=== PATIENT | female | born 1995 | race Caucasian/White ===

== ENCOUNTER 2019-04-15 06:30 | Inpatient (IN) | payer OTHER, SELFPAY ==
[2019-04-15] VITALS (14 sets, daily range): BP systolic 104–144; BP diastolic 73–106; PULSE 112–140; RESP 13–24; TEMP 36.1–37.3; O2SAT 18–100; BMI 25.6
--- NOTE | ~2019-04-15 | CT_ITS ---
EXAMINATION: CT brain wo con DATE: 04/15/2019 23:57 INDICATION: Anterior right head injury post fall TECHNIQUE: Computed tomography (CT) of the head was performed without intravenous contrast. Sagittal and coronal reconstructions were performed. The mA was adjusted according to patient size. Iterative reconstruction technique was employed. The dose-length product was 605.33 mGy-cm. COMPARISON: None FINDINGS: Small anterior right frontal subcutaneous hematoma. No fracture. No acute intracranial hemorrhage, ac cahto infarction or abnormal extra axial fluid collection. Ventricles are normal and symmetric. No mass /mass effect. The orbits, paranasal sinuses and mastoid air cells are normal. IMPRESSION: 1. Normal brain. No fracture or acute intracranial process. Reviewed, dictated and finalized at location A. DRIER
--- NOTE | ~2019-04-15 | XR_ITS ---
EXAMINATION: XR chest 2V DATE: 04/15/2019 07:28 INDICATION: Chest pain. TECHNIQUE: Frontal and lateral views of the chest were obtained. COMPARISON: CT abdomen and pelvis 03/31/2016, chest 2 views 06/21/2011 FINDINGS: There is no pneumonia, pleural effusion, or pneumothorax. The heart size is normal. IMPRESSION: 1. No acute cardiopulmonary disease. Reviewed, dictated and finalized at location A. CELL TECHNICIAN
--- NOTE | 2019-04-15 07:03 | ECG_ITS ---
Measurements Intervals [place] Rate: 126 P: 57 CA: 152 QRS: 46 QRSD: 79 T: 51 QT: 273 QTc: 396 Interpretive Statements SINUS TACHYCARDIA ABNORMAL ECG Electronically Signed On 04-15-2019 8:11:57 [employer] by Carlos Blankenship D.O.
--- NOTE | 2019-04-15 07:14 | ED.ALCOHOL ---
HPI - Alcohol General Chief Complaint: Alcohol Stated Complaint: N/V/WITHDRAWL Time Seen by Provider: 04/15/19 06:55 Source: patient Mode of arrival: ambulatory Limitations: no limitations History of Present Illness HPI narrative: Patient is a 23-year-old female who presents to the emergency department with complaint of nausea, vomiting, and alcohol withdrawal. Patient has been drinking approximately half 1/5 of vodka daily for over a year. Patient states she tried Natasha a couple of days ago. Patient has not had any alcohol in 2 days. She developed nausea and vomiting last night and has been able to keep down any liquids. Patient developed a shaking tremor last night. Patient denies any prior treatment for alcoholism. She is currently complaining of epigastric abdominal pain as well as chest pain. MD complaint: alcohol withdrawal Last drink: days (ago) (2) Chronic alcohol use: Yes Previous visits for alcohol intoxication: No Recent trauma: No Associated symptoms: nausea, vomiting, tremors and abdominal pain Treatments prior to arrival: none Related Data Allergies Allergy/AdvReac Type Severity Reaction Status Date / Time No Known Allergies Allergy Unverified 03/31/16 03:28 Review of Systems Review of Systems: All systems reviewed & are unremarkable except as noted in HPI and below Cardiovascular: Cardiovascular: Reports chest pain Gastrointestinal: Gastrointestinal: Reports abdominal pain, Reports nausea and Reports vomiting Psychiatric: Psychiatric: Reports anxiety PMFSH Past Medical History Medical History (Updated 04/15/19 @ 11:42 by María Aguirre MD) No significant past medical history Surgical History Surgical History (Updated 04/15/19 @ 07:28 by María Aguirre MD) No significant past surgical history Family History Family History (Updated 11/07/13 @ 07:13 by DOCTOR UNKNOWN) Grandparent Hypertension Mother Hypertension Social History Social History (Updated 04/15/19 @ 07:18 by María Aguirre MD) Smoking status: Never smoker Alcohol intake: current Alcohol use details: Half of 1/5 of vodka daily Substance use type: other Other substance usage details: Natasha Gender identity (if verbalized by the patient): Female Exam Const: General: cooperative, alert and ill appearing acutely Nutritional Appearance: well nourished Orientation/consciousness: patient oriented x3 Limitations: no limitations Other: Actively vomiting during evaluation HENMT: Mouth: Yes lip normal and Yes moist mucous membranes Resp: Effort & Inspection: normal respiratory effort Auscultation: clear to auscultation bilaterally Cardio: Rate: tachycardic Rhythm: regular rhythm GI: GI Palp: Yes abdominal tenderness (Epigastric) and Yes Soft to palpation Auscultation: normal bowel sounds Skin: General skin exam: normal color Neuro: General: patient oriented x3 Cognition (Neuro): normal cognition Speech: normal speech Motor exam (neuro): Tremors during motor activity present Extrem: General: normal to inspection, full ROM and no clubbing, cyanosis or edema Psych: Appearance: well kempt Mental Status: mental status grossly normal Affect: Anxious affect present Attitude: cooperative Course Course Emergency Course: Patient presents tachycardic, hypertensive, and tremulous consistent with alcohol withdrawal. Patient ended up testing positive for amphetamines and cocaine on drug screen, thus complicating the picture as some of her symptoms could be due to stimulant intoxication. Patient feels better after Ativan, but still having tremor, so second dose of Ativan given. Patient aggressively hydrated. Will admit to hospital service for close monitoring and treatment of alcohol withdrawal and stimulant intoxication. No evidence of rhabdomyolysis at this time. Patient advised of test results, diagnosis, and admission plan. Vital Signs Vital signs: Vital Signs Temperature 97.
[2019-04-15] MEDS: LACTATED RINGERS 1,000 ML 999 ML IV CONT ×2 (07:32→09:07)
[2019-04-15] MEDS: LORAZEPAM INJ 2 MG/ML VIAL IV PUSH ×2 (07:34→09:07)
[2019-04-15] MEDS: ONDANSETRON INJ 4 MG/2 ML VIAL IV PUSH ×2 (07:34→11:12)
[2019-04-15] MEDS: PANTOPRAZOLE SODIUM IV 40 MG VIAL IV PUSH (07:34)
[2019-04-15 07:54] LABS: Basophils Absolute Auto 0.1 K/mm3 (0.0-0.1); Basophils Percent Auto 0.7 % (0.2-1.2); Hematocrit 45.7 % (37.0-47.0); Hemoglobin 14.5 g/dL (12.0-15.0); Immature Granulocyte Absolute 0.22 K/mm3 (0.00-0.031); Immature Granulocyte Percent A 1.5 % (0-0.5); Lymphocytes Absolute Auto 0.69 K/mm3 (0.9-3.2); Lymphocytes Percent Auto 4.7 % (18.3-44.2); Mean Corpuscular HGB Conc 31.7 g/dl (32-36); Mean Corpuscular Hemoglobin 32.6 pg (26-34); Mean Corpuscular Volume 102.7 fl (80-100); Monocytes Absolute Auto 0.7 K/mm3 (0.1-0.6); Monocytes Percent Auto 4.5 % (2.6-8.5); Neutrophils Percent Auto 88.6 % (45.5-73.1); Platelet Count Result 149 k/mm3 (150-375); Red Blood Count 4.45 M/mm3 (4.2-5.4); Red Cell Distribution Width 12.8 % (11.5-14.5); White Blood Count 14.6 K/mm3 (4.5-10.0)
[2019-04-15 07:59] LABS: Add Urine Microscopic? YES; Appearance Urine Clear (Clear); Bilirubin Urine Negative (Negative); Blood Urine 2+ (Negative); Color Urine Yellow (Yellow); Glucose Urine UA Negative (Negative); Ketones Urine 2+ mg/dL (Negative); Leukocyte Esterase Ur Negative LEU/UL (Negative); Mucus Urine Rare /lpf; Nitrate Urine Negative (Negative); Protein Urine 3+ mg/dL (Negative); Specific Grav Ur 1.027 (1.001-1.035); Squamous Epithelial Cell Urine Many /hpf (Few); Urobilinogen Urine Negative mg/dL (<2.0)
[2019-04-15 08:04] LABS: Partial Thromboplastin Time 23.8 SECONDS (22.3-36.8); Prothrombin Time 13.3 Seconds (11.1-14.7)
[2019-04-15 08:08] LABS: Alanine Aminotransferase 206 U/L (4-35); Alkaline Phosphatase 91 U/L (38-126); Aspartate Amino Transferase 291 U/L (14-36); Blood Urea Nitrogen 13 mg/dL (7-17); Calcium 10.2 mg/dL (8.4-10.2); Carbon Dioxide < 5 mmol/L (22-30); Chloride 103 mmol/L (98-107); Estimated CRCL calculation 64 ml/min; Estimated Glomerular Filt Rate > 60; Ethanol 19 mg/dL (<10); Glucose 93 mg/dL (65-105); Lipase 331 U/L (23-300); Magnesium 2.1 mg/dL (1.6-2.3); Potassium 4.7 mmol/L (3.4-5.0); Sodium 140 mmol/L (137-145)
[2019-04-15 08:13] LABS: Barbiturate Screen Urine Negative (Negative); Benzodiazepines Screen Urine Negative (Negative)
[2019-04-15 08:14] LABS: Cannabinoid Screen Urine Negative (Negative); Cocaine Screen Urine Positive (Negative); Methadone Screen Urine Negative (Negative); Opiate Screen Urine Negative (Negative); Phencyclidine Screen Urine Negative (Negative)
[2019-04-15 08:22] LABS: Troponin I < 0.012 ng/mL (0.000-0.034)
[2019-04-15 08:24] LABS: Amphetamine Screen Urine Positive (Negative)
[2019-04-15 08:51] LABS: Thyroid Stimulating Hormone Reflex 0.691 uIU/mL (0.465-4.68)
[2019-04-15 09:30] LABS: Creatine Kinase 211 U/L (30-135)
[2019-04-15] MEDS: LORAZEPAM INJ 2 MG/ML VIAL 1 MG IV PUSH ×3 (12:19→20:42)
[2019-04-15] MEDS: CHLORDIAZEPOXIDE 25 MG CAPSULE PO (12:19)
[2019-04-15] MEDS: LACTATED RINGERS 1,000 ML 150 ML IV CONT ×3 (12:20→20:42)
--- NOTE | 2019-04-15 13:24 | PM.IMHP ---
H&P: HPI History of Present Illness Chief complaint: Acute alcohol withdrawl/nausea/vomiting/diarrhea Narrative: Jaylene Pimentel is a 23 year old female who has been drinking a half to a 5th of a pt of vodka on a daily basis for the last year. The patient stated that she has not had a drink of alcohol since Monday. The patient stated she deals with OCD and some held depression and anxiety. She has been on medication for OCD but not from long time. She currently does not take any medication. Patient has a family history of alcoholism. The patient started vomiting last night and is unable to keep down any fluids today. Patient is also shaky and having hand tremors since last night. Today she is having some hallucinations about seeing people in her room that do not exist. Blood pressure is 121/73 and heart rate is 134. On IV fluids and given IV lorazepam. She is also started on Librium as well. Started on the [facility]. Date of service 04/15/2019.Patient also stated that she had taken Natasha a couple days ago. She does not use Natasha every day. Her white count was noted to be 14.6 and platelets 149. Chest x-ray was negative. Review of Systems Review of Systems: All systems reviewed & are unremarkable except as noted in HPI and below Constitutional: Constitutional: Reports as per HPI and Reports no additional constitutional complaints Eyes: Eyes: Reports as per HPI and Reports no additional eye complaints ENT: Reports system reviewed and no additional complaints, except as documented and Reports Normal hearing present Cardiovascular: Cardiovascular: Reports no additional cardiovascular complaints Respiratory: Respiratory: Reports no additional respiratory complaints and Reports no additional respiratory complaints Gastrointestinal: Gastrointestinal: Reports as per HPI and Reports no additional gastrointestinal complaints Musculoskeletal: Musculoskeletal: Reports no additional musculoskeletal complaints Integumentary/Breasts: Skin/Breast: Reports system reviewed and no additional complaints, except as docu and Reports as per HPI Neurologic: Reports system reviewed and no additional complaints, except as documented, Reports as per HPI and Reports Normal hearing present Psychiatric: Psychiatric: Reports no additional psychiatric complaints, Reports as per HPI, Reports anxiety, Reports depression, Reports visual hallucinations and Reports hallucinations Endocrine: Endocrine: Reports no additional endocrine complaints Hematologic/Lymphatic: Hematologic/Lymphatic: Reports no additional hematologic/lymphatic complaints Allergic/Immunologic: Allergic/Immunologic: Reports no additional allergic/immunologic complaints [facility] Past Medical History Medical History (Updated 04/15/19 @ 13:29 by Jeanne Robledo NP) No significant past medical history OCD (obsessive compulsive disorder) Surgical History Surgical History (Updated 04/15/19 @ 13:30 by Jeanne Robledo NP) H/O wisdom tooth extraction Family History Family History (Updated 04/15/19 @ 13:30 by Jeanne Robledo NP) Grandparent Hypertension Mother Hypertension Father Alcoholism /alcohol abuse Sibling Depression Social History Social History (Updated 04/15/19 @ 13:37 by Jeanne Robledo NP) Social History: The patient stated she lives with her boyfriend. She works for a cleaning company. She does not have a power estate planning attorney. She has been drinking a half to 1/5 pt vodka every day for approximately 1 year. Occasionally uses Natasha. She is willing to go to rehab. She is a full code. Smoking status: Never smoker Alcohol intake: current Drinks per week: 7 Alcohol use details: Half of 1/5 of vodka daily Substance use: current Substance use type: crack/cocaine, amphetamines and other Other substance usage details: substance used was laced with cocaine, pt didnt know Living arrangements: other Occupation/Education: occupation Gender identit
[2019-04-15] MEDS: CHLORDIAZEPOXIDE 25 MG CAPSULE 50 MG PO ×2 (16:36→20:42)
[2019-04-15] MEDS: FOLIC ACID 1 MG TABLET PO (19:30)
[2019-04-15] MEDS: THIAMINE HCL 100 MG TABLET PO (19:31)
[2019-04-16] VITALS (13 sets, daily range): BP systolic 107–131; BP diastolic 70–87; PULSE 76–116; RESP 16–20; TEMP 36.6–36.9; O2SAT 96–100
[2019-04-16] MEDS: CHLORDIAZEPOXIDE 25 MG CAPSULE 50 MG PO ×5 (00:56→22:22)
[2019-04-16] MEDS: LORAZEPAM INJ 2 MG/ML VIAL 1 MG IV PUSH ×5 (00:56→22:23)
[2019-04-16] MEDS: LACTATED RINGERS 1,000 ML 150 ML IV CONT ×2 (03:22→13:30)
[2019-04-16 04:48] LABS: Basophils Percent Auto 0.6 % (0.2-1.2); Eosinophils Percent Auto 0.3 % (0-4.4); Hematocrit 36.6 % (37.0-47.0); Hemoglobin 11.9 g/dL (12.0-15.0); Immature Granulocyte Absolute 0.04 K/mm3 (0.00-0.031); Immature Granulocyte Percent A 0.6 % (0-0.5); Lymphocytes Absolute Auto 1.87 K/mm3 (0.9-3.2); Lymphocytes Percent Auto 28.1 % (18.3-44.2); Mean Corpuscular HGB Conc 32.5 g/dl (32-36); Mean Corpuscular Hemoglobin 32.8 pg (26-34); Mean Corpuscular Volume 100.8 fl (80-100); Mean Platelet Volume 9.2 fl (7.4-10.4); Monocytes Absolute Auto 0.8 K/mm3 (0.1-0.6); Monocytes Percent Auto 11.4 % (2.6-8.5); Neutrophils Absolute Auto 3.9 K/mm3 (1.3-6.7); Platelet Count Result 87 k/mm3 (150-375); Red Blood Count 3.63 M/mm3 (4.2-5.4); Red Cell Distribution Width 12.9 % (11.5-14.5); White Blood Count 6.7 K/mm3 (4.5-10.0)
[2019-04-16 05:01] LABS: Alanine Aminotransferase 127 U/L (4-35); Albumin Level 4.3 g/dL (3.5-5.1); Alkaline Phosphatase 53 U/L (38-126); Aspartate Amino Transferase 123 U/L (14-36); Bilirubin,Total 1.2 mg/dL (0.2-1.3); Blood Urea Nitrogen 12 mg/dL (7-17); Carbon Dioxide 21 mmol/L (22-30); Chloride 105 mmol/L (98-107); Estimated CRCL calculation 81 ml/min; Estimated Glomerular Filt Rate > 60; Glucose 91 mg/dL (65-105); Sodium 138 mmol/L (137-145)
--- NOTE | 2019-04-16 17:20 | PM.IMPN ---
Progress Note: A&P Assessment and Plan (1) Alcohol withdrawal syndrome: Code(s): F10.239 - Alcohol dependence with withdrawal, unspecified Status: Acute Assessment and Plan: 04/16/19 17:20 patient is a 23-year-old female presented emergency department with a complaint abdominal pain nausea or vomiting patient stated see had been drinking how half bottle of 5th of vodka daily for 1 year, patient had not had drinking 2 days developed nausea or vomiting tremor was not able to hold any p.o. and presented emergency department for further evaluation patient is found to have alcohol withdrawal patient was started on Librium, Ativan as needed folic acid and thiamine, patient still trembling unable to hold anything p.o. denies any fever or chills patient being monitor with [facility] protocol will taper Librium as patient's symptoms improved, patient is also in contact with social service for possible transfer to alcohol withdrawal facility patient will benefit psychiatry care (2) OCD (obsessive compulsive disorder): Code(s): F42.9 - Obsessive-compulsive disorder, unspecified Status: Chronic Assessment and Plan: Patient stated that she would like to start on medication for her OCd. She had been on medication in the past but not recently. (3) Anxiety: Code(s): F41.9 - Anxiety disorder, unspecified Status: Acute Assessment and Plan: Most likely due to her alcohol withdrawal. (4) Depression: Code(s): F32.9 - Major depressive disorder, single episode, unspecified Status: Acute Assessment and Plan: Patient stated that it is only mild and has not been taking any medication for this. (5) Nausea & vomiting: Code(s): R11.2 - Nausea with vomiting, unspecified Status: Acute Assessment and Plan: Continue with Zofran and IV fluids. Most likely due to the alcohol withdrawal. (6) Dehydration: Code(s): E86.0 - Dehydration Status: Acute Assessment and Plan: Continue to hydrate with IV fluids. Subjective Date/time seen: 04/16/19 17:20 patient is a 23-year-old female presented emergency department with a complaint abdominal pain nausea or vomiting patient stated see had been drinking how half bottle of 5th of vodka daily for 1 year, patient had not had drinking 2 days developed nausea or vomiting tremor was not able to hold any p.o. and presented emergency department for further evaluation patient is found to have alcohol withdrawal patient was started on Librium, Ativan as needed folic acid and thiamine, patient still trembling unable to hold anything p.o. denies any fever or chills Review of Systems Review of Systems: All systems reviewed & are unremarkable except as noted in HPI and below Exam Narrative: Exam Narrative: Patient is in withdrawal Const: General: comfortable and no acute distress HENMT: General nose exam: Normal nares present Mouth: Yes moist mucous membranes Eyes: General: appearance normal, both eyes and all related structures Sclera: sclerae normal Neck: Neck: supple Resp: Effort & Inspection: normal respiratory effort Auscultation: clear to auscultation bilaterally Cardio: Rate: regular rate Rhythm: regular rhythm Skin: General skin exam: normal color and no rashes or lesions noted Neuro: Speech: normal speech Sensory Exam: normal sensation Other: Patient has a fine tremors Extrem: General: normal to inspection Psych: Affect: Sad affect present and Anxious affect present Other: Crying Objective Data Vital Signs Vital Signs: Vital Signs - 24 hr 04/15/19 18:00 04/15/19 19:58 04/15/19 20:00 Temperature 99.1 F Pulse Rate 130 H 119 H 140 H Pulse Rate [Monitor] 140 H Respiratory Rate 20 20 Blood Pressure 137/82 Pulse Oximetry 99 99 04/15/19 22:00 04/15/19 23:15 04/16/19 00:29 Temperature 98.2 F 98.2 F Pulse Rate 122 H 140 H 102 H Pulse Rate [Monitor] 102 H Respiratory Rate 20 20
[2019-04-17] VITALS (14 sets, daily range): BP systolic 113–125; BP diastolic 84–95; PULSE 73–104; RESP 16–20; TEMP 36.5–36.7; O2SAT 100
[2019-04-17] MEDS: CHLORDIAZEPOXIDE 25 MG CAPSULE 50 MG PO ×4 (03:15→22:16)
[2019-04-17] MEDS: LORAZEPAM INJ 2 MG/ML VIAL 1 MG IV PUSH ×4 (03:15→22:16)
[2019-04-17] MEDS: LACTATED RINGERS 1,000 ML 150 ML IV CONT ×2 (06:04→22:15)
[2019-04-17] MEDS: ENOXAPARIN 40 MG/0.4 ML SYRINGE SUB-Q (09:52)
--- NOTE | 2019-04-17 15:02 | PM.IMPN ---
Progress Note: A&P Assessment and Plan (1) Alcohol withdrawal syndrome: Code(s): F10.239 - Alcohol dependence with withdrawal, unspecified Status: Acute Assessment and Plan: 04/17/19 15:02 patient is a 23-year-old female presented emergency department with a complaint abdominal pain nausea or vomiting patient stated see had been drinking how half bottle of 5th of vodka daily for 1 year, patient had not had drinking 2 days developed nausea or vomiting tremor was not able to hold any p.o. and presented emergency department for further evaluation patient is found to have alcohol withdrawal patient was started on Librium, Ativan as needed folic acid and thiamine, patient still trembling unable to hold anything p.o. denies any fever or chills patient being monitor with [facility] protocol will taper Librium as patient's symptoms have improved, patient is also in contact with social service for possible transfer to alcohol rehab facility patient will benefit psychiatry care, will continue to monitor as patient is requring librium and ativen as scheduled, (2) OCD (obsessive compulsive disorder): Code(s): F42.9 - Obsessive-compulsive disorder, unspecified Status: Chronic Assessment and Plan: Patient stated that she would like to start on medication for her OCd. She had been on medication in the past but not recently. (3) Anxiety: Code(s): F41.9 - Anxiety disorder, unspecified Status: Acute Assessment and Plan: Most likely due to her alcohol withdrawal. (4) Depression: Code(s): F32.9 - Major depressive disorder, single episode, unspecified Status: Acute Assessment and Plan: Patient stated that it is only mild and has not been taking any medication for this. (5) Nausea & vomiting: Code(s): R11.2 - Nausea with vomiting, unspecified Status: Acute Assessment and Plan: Continue with Zofran and IV fluids. Most likely due to the alcohol withdrawal. (6) Dehydration: Code(s): E86.0 - Dehydration Status: Acute Assessment and Plan: Continue to hydrate with IV fluids. Subjective Date/time seen: 04/17/19 15:02 patient is a 23-year-old female presented emergency department with a complaint abdominal pain nausea or vomiting patient stated see had been drinking how half bottle of 5th of vodka daily for 1 year, patient had not had drinking 2 days developed nausea or vomiting tremor was not able to hold any p.o. and presented emergency department for further evaluation patient is found to have alcohol withdrawal patient was started on Librium, Ativan as needed folic acid and thiamine, patient still trembling unable to hold anything p.o. denies any fever or chills patient being monitor with [facility] protocol will taper Librium as patient's symptoms have improved, patient is also in contact with social service for possible transfer to alcohol rehab facility patient will benefit psychiatry care, will continue to monitor as patient is requring librium and ativen as scheduled, Review of Systems Review of Systems: All systems reviewed & are unremarkable except as noted in HPI and below Exam Const: General: comfortable and no acute distress HENMT: General nose exam: Normal nares present Mouth: Yes moist mucous membranes Eyes: General: appearance normal, both eyes and all related structures Sclera: sclerae normal Neck: Neck: supple Resp: Effort & Inspection: normal respiratory effort Auscultation: clear to auscultation bilaterally Cardio: Rate: regular rate Rhythm: regular rhythm Skin: General skin exam: normal color and no rashes or lesions noted Neuro: Speech: normal speech Sensory Exam: normal sensation Extrem: General: normal to inspection Psych: Affect: Anxious affect present Objective Data Vital Signs Vital Signs: Vital Signs - 24 hr 04/16/19 16:00 04/16/19 18:00 04/16/19 19:48 Temperature 98.5 F 98.2 F Pulse Rate 95 93 88
[2019-04-17 15:22] LABS: Hematocrit 36.8 % (37.0-47.0); Hemoglobin 12.2 g/dL (12.0-15.0); Mean Corpuscular HGB Conc 33.2 g/dl (32-36); Mean Corpuscular Hemoglobin 32.8 pg (26-34); Mean Corpuscular Volume 98.9 fl (80-100); Mean Platelet Volume 9.4 fl (7.4-10.4); Platelet Count Result 81 k/mm3 (150-375); Red Blood Count 3.72 M/mm3 (4.2-5.4); Red Cell Distribution Width 12.3 % (11.5-14.5)
[2019-04-17 15:35] LABS: Alanine Aminotransferase 112 U/L (4-35); Albumin Level 4.2 g/dL (3.5-5.1); Alkaline Phosphatase 66 U/L (38-126); Aspartate Amino Transferase 185 U/L (14-36); Bilirubin,Total 0.8 mg/dL (0.2-1.3); Blood Urea Nitrogen 6 mg/dL (7-17); Carbon Dioxide 23 mmol/L (22-30); Chloride 103 mmol/L (98-107); Estimated CRCL calculation 93 ml/min; Estimated Glomerular Filt Rate > 60; Glucose 111 mg/dL (65-105); Magnesium 2.2 mg/dL (1.6-2.3); Potassium 3.8 mmol/L (3.4-5.0); Sodium 136 mmol/L (137-145)
[2019-04-18] VITALS (14 sets, daily range): BP systolic 113–146; BP diastolic 73–100; PULSE 68–99; RESP 16–20; TEMP 36.1–36.9; O2SAT 100
[2019-04-18] MEDS: LACTATED RINGERS 1,000 ML 150 ML IV CONT (03:33)
[2019-04-18] MEDS: CHLORDIAZEPOXIDE 25 MG CAPSULE 50 MG PO ×3 (03:33→21:23)
[2019-04-18 05:32] LABS: Blood Urea Nitrogen 6 mg/dL (7-17); Calcium 8.6 mg/dL (8.4-10.2); Carbon Dioxide 25 mmol/L (22-30); Chloride 104 mmol/L (98-107); Estimated CRCL calculation 109 ml/min; Estimated Glomerular Filt Rate > 60; Glucose 100 mg/dL (65-105); Potassium 3.5 mmol/L (3.4-5.0); Sodium 137 mmol/L (137-145)
[2019-04-18] MEDS: LORAZEPAM INJ 2 MG/ML VIAL 1 MG IV PUSH ×3 (09:01→22:58)
[2019-04-18 10:31] LABS: Hematocrit 34.8 % (37.0-47.0); Hemoglobin 11.3 g/dL (12.0-15.0); Mean Corpuscular HGB Conc 32.5 g/dl (32-36); Mean Corpuscular Hemoglobin 32.8 pg (26-34); Mean Corpuscular Volume 100.9 fl (80-100); Mean Platelet Volume 9.9 fl (7.4-10.4); Platelet Count Result 75 k/mm3 (150-375); Red Blood Count 3.45 M/mm3 (4.2-5.4); Red Cell Distribution Width 12.4 % (11.5-14.5); White Blood Count 5.1 K/mm3 (4.5-10.0)
--- NOTE | 2019-04-18 15:39 | PM.IMPN ---
Progress Note: A&P Assessment and Plan (1) Alcohol withdrawal syndrome: Code(s): F10.239 - Alcohol dependence with withdrawal, unspecified Status: Acute Assessment and Plan: 04/17/19 15:02 patient is a 23-year-old female presented emergency department with a complaint abdominal pain nausea or vomiting patient stated see had been drinking how half bottle of 5th of vodka daily for 1 year, patient had not had drinking 2 days developed nausea or vomiting tremor was not able to hold any p.o. and presented emergency department for further evaluation patient is found to have alcohol withdrawal patient was started on Librium, Ativan as needed folic acid and thiamine, patient still trembling unable to hold anything p.o. denies any fever or chills patient being monitor with [facility] protocol will taper Librium as patient's symptoms have improved, patient is also in contact with social service for possible transfer to alcohol rehab facility patient will benefit psychiatry care, will continue to monitor as patient is requring librium and ativen as scheduled, patient clinically symptoms are improving compared to yesterday. (2) OCD (obsessive compulsive disorder): Code(s): F42.9 - Obsessive-compulsive disorder, unspecified Status: Chronic Assessment and Plan: Patient stated that she would like to start on medication for her OCd. She had been on medication in the past but not recently. (3) Anxiety: Code(s): F41.9 - Anxiety disorder, unspecified Status: Acute Assessment and Plan: Most likely due to her alcohol withdrawal. (4) Depression: Code(s): F32.9 - Major depressive disorder, single episode, unspecified Status: Acute Assessment and Plan: Patient stated that it is only mild and has not been taking any medication for this. (5) Nausea & vomiting: Code(s): R11.2 - Nausea with vomiting, unspecified Status: Acute Assessment and Plan: Continue with Zofran and IV fluids. Most likely due to the alcohol withdrawal. (6) Dehydration: Code(s): E86.0 - Dehydration Status: Acute Assessment and Plan: Continue to hydrate with IV fluids. Subjective Date/time seen: 04/18/19 15:39 patient is a 23-year-old female presented emergency department with a complaint abdominal pain nausea or vomiting patient stated see had been drinking how half bottle of 5th of vodka daily for 1 year, patient had not had drinking 2 days developed nausea or vomiting tremor was not able to hold any p.o. and presented emergency department for further evaluation patient is found to have alcohol withdrawal patient was started on Librium, Ativan as needed folic acid and thiamine, patient still trembling unable to hold anything p.o. denies any fever or chills patient being monitor with [facility] protocol will taper Librium as patient's symptoms have improved, patient is also in contact with social service for possible transfer to alcohol rehab facility patient will benefit psychiatry care, will continue to monitor as patient is requring librium and ativen as scheduled, patient clinically symptoms are improving compared to yesterday. Review of Systems Review of Systems: All systems reviewed & are unremarkable except as noted in HPI and below Exam Narrative: Exam Narrative: Still quite anxious Const: General: comfortable and no acute distress HENMT: General nose exam: Normal nares present Mouth: Yes moist mucous membranes Eyes: General: appearance normal, both eyes and all related structures Sclera: sclerae normal Neck: Neck: supple Resp: Effort & Inspection: normal respiratory effort Auscultation: clear to auscultation bilaterally Cardio: Rate: regular rate Rhythm: regular rhythm GI: Auscultation: normal bowel sounds Skin: General skin exam: normal color and no rashes or lesions noted Neuro: Speech: normal speech Sensory Exam: normal sensation Extrem: General: normal to
[2019-04-19] VITALS (8 sets, daily range): BP systolic 115–132; BP diastolic 77–94; PULSE 70–87; RESP 16–18; TEMP 36–36.8; O2SAT 97–100
[2019-04-19 05:45] LABS: Hematocrit 35.1 % (37.0-47.0); Hemoglobin 11.4 g/dL (12.0-15.0); Immature Platelet Fraction Pct 3.4 % (0.9-11.2); Mean Corpuscular HGB Conc 32.5 g/dl (32-36); Mean Corpuscular Hemoglobin 32.7 pg (26-34); Mean Corpuscular Volume 100.6 fl (80-100); Platelet Count Result 87 k/mm3 (150-375); Red Blood Count 3.49 M/mm3 (4.2-5.4); Red Cell Distribution Width 12.7 % (11.5-14.5); White Blood Count 5.1 K/mm3 (4.5-10.0)
[2019-04-19 05:51] LABS: Blood Urea Nitrogen 7 mg/dL (7-17); Calcium 8.9 mg/dL (8.4-10.2); Carbon Dioxide 25 mmol/L (22-30); Chloride 105 mmol/L (98-107); Estimated CRCL calculation 126 ml/min; Estimated Glomerular Filt Rate > 60; Glucose 102 mg/dL (65-105); Potassium 3.6 mmol/L (3.4-5.0); Sodium 140 mmol/L (137-145)
[2019-04-19] MEDS: THIAMINE HCL 100 MG TABLET PO (09:48)
[2019-04-19] MEDS: FOLIC ACID 1 MG TABLET PO (09:49)
[2019-04-19] MEDS: ENOXAPARIN 40 MG/0.4 ML SYRINGE SUB-Q (09:49)
--- NOTE | 2019-04-19 11:44 | PM.IMPN ---
Progress Note: A&P Assessment and Plan (1) Alcohol withdrawal syndrome: Code(s): F10.239 - Alcohol dependence with withdrawal, unspecified Status: Acute Assessment and Plan: 04/19/19 11:44 patient is a 23-year-old female presented emergency department with a complaint abdominal pain nausea or vomiting patient stated see had been drinking how half bottle of 5th of vodka daily for 1 year, patient had not had drinking 2 days developed nausea or vomiting tremor was not able to hold any p.o. and presented emergency department for further evaluation patient is found to have alcohol withdrawal patient was started on Librium, Ativan as needed folic acid and thiamine, patient still trembling unable to hold anything p.o. denies any fever or chills patient being monitor with CIWA protocol will taper Librium as patient's symptoms improve, patient is also in contact with social service for possible transfer to alcohol rehab Patient will benefit from going into inpatient alcohol rehab center for her alcohol addiction, she is now out of risk DT, will continue to monitor as patient is requring less librium and as needed, will stop IV Ativan and place her on xanax PRN, patient clinical symptoms are improving compared to yesterday. will continue to monitor patient one more day and discharge her tomorrow. (2) OCD (obsessive compulsive disorder): Code(s): F42.9 - Obsessive-compulsive disorder, unspecified Status: Chronic Assessment and Plan: Patient stated that she would like to start on medication for her OCd. She had been on medication in the past but not recently. (3) Anxiety: Code(s): F41.9 - Anxiety disorder, unspecified Status: Acute Assessment and Plan: Most likely due to her alcohol withdrawal. today symptoms are much better (4) Depression: Code(s): F32.9 - Major depressive disorder, single episode, unspecified Status: Acute Assessment and Plan: Patient stated that it is only mild and has not been taking any medication for this. (5) Nausea & vomiting: Code(s): R11.2 - Nausea with vomiting, unspecified Status: Acute Assessment and Plan: Continue with Zofran and IV fluids. Most likely due to the alcohol withdrawal. (6) Dehydration: Code(s): E86.0 - Dehydration Status: Acute Assessment and Plan: Continue to hydrate with IV fluids. Subjective Date/time seen: 04/19/19 11:44 patient is a 23-year-old female presented emergency department with a complaint abdominal pain nausea or vomiting patient stated see had been drinking how half bottle of 5th of vodka daily for 1 year, patient had not had drinking 2 days developed nausea or vomiting tremor was not able to hold any p.o. and presented emergency department for further evaluation patient is found to have alcohol withdrawal patient was started on Librium, Ativan as needed folic acid and thiamine, patient still trembling unable to hold anything p.o. denies any fever or chills patient being monitor with CIWA protocol will taper Librium as patient's symptoms improve, patient is also in contact with social service for possible transfer to alcohol rehab Patient will benefit from going into inpatient alcohol rehab center for her alcohol addiction, she is now out of risk DT, will continue to monitor as patient is requring less librium and as needed, will stop IV Ativan and place her on xanax PRN, patient clinical symptoms are improving compared to yesterday. will continue to monitor patient one more day and discharge her tomorrow. Review of Systems Review of Systems: All systems reviewed & are unremarkable except as noted in HPI and below Exam Const: General: comfortable and no acute distress HENMT: General nose exam: Normal nares present Mouth: Yes moist mucous membranes Eyes: General: appearance normal, both eyes and all related structures Sclera: sclerae normal Neck: Neck: supple Resp:
[2019-04-19] MEDS: ALPRAZOLAM 0.5 MG TABLET PO ×2 (12:28→20:43)
--- NOTE | 2019-04-19 13:50 | PC.NURSE ---
This patient, Jaylene Pimentel, was received from IMU on 04/19/19 at 1350. Personal belongings list checked and signed. Patient/family oriented to unit policies and routines
--- NOTE | 2019-04-19 14:56 | PC.NURSE ---
1345- orders to transfer to [facility] medical -report given to Pierre RN - pt transferred to room 319 via w/c accompanied by staff and mother
[2019-04-19] MEDS: CHLORDIAZEPOXIDE 25 MG CAPSULE PO (16:16)
[2019-04-20] MEDS: CHLORDIAZEPOXIDE 25 MG CAPSULE PO (01:22)
[2019-04-20 06:00] VITALS: BP 115/87; PULSE 81; RESP 16; TEMP 36.4; O2SAT 99
[2019-04-20] MEDS: FOLIC ACID 1 MG TABLET PO (09:59)
[2019-04-20] MEDS: ENOXAPARIN 40 MG/0.4 ML SYRINGE SUB-Q (09:59)
[2019-04-20] MEDS: THIAMINE HCL 100 MG TABLET PO (09:59)
--- NOTE | 2019-04-20 12:56 | PM.DS ---
DS: Diagnosis Admitting Diagnosis Admitting Diagnosis: Alcohol dependence with withdrawal, unspecified Discharge Diagnosis (1) Alcohol withdrawal syndrome: Code(s): F10.239 - Alcohol dependence with withdrawal, unspecified Status: Acute Assessment and Plan: 04/19/19 11:44 patient is a 23-year-old female presented emergency department with a complaint abdominal pain nausea or vomiting patient stated see had been drinking how half bottle of 5th of vodka daily for 1 year, patient had not had drinking 2 days developed nausea or vomiting tremor was not able to hold any p.o. and presented emergency department for further evaluation patient is found to have alcohol withdrawal patient was started on Librium, Ativan as needed folic acid and thiamine, patient still trembling unable to hold anything p.o. denies any fever or chills patient being monitor with CIWA protocol will taper Librium as patient's symptoms improve, patient is also in contact with social service for possible transfer to alcohol rehab Patient will benefit from going into inpatient alcohol rehab center for her alcohol addiction, she is now out of risk DT, will continue to monitor as patient is requring less librium and as needed, will stop IV Ativan and place her on xanax PRN, patient clinical symptoms are improving compared to yesterday. will continue to monitor patient one more day and discharge her tomorrow. (2) OCD (obsessive compulsive disorder): Code(s): F42.9 - Obsessive-compulsive disorder, unspecified Status: Chronic Assessment and Plan: Patient stated that she would like to start on medication for her OCd. She had been on medication in the past but not recently. (3) Anxiety: Code(s): F41.9 - Anxiety disorder, unspecified Status: Acute Assessment and Plan: Most likely due to her alcohol withdrawal. today symptoms are much better (4) Depression: Code(s): F32.9 - Major depressive disorder, single episode, unspecified Status: Acute Assessment and Plan: Patient stated that it is only mild and has not been taking any medication for this. (5) Nausea & vomiting: Code(s): R11.2 - Nausea with vomiting, unspecified Status: Acute Assessment and Plan: Continue with Zofran and IV fluids. Most likely due to the alcohol withdrawal. (6) Dehydration: Code(s): E86.0 - Dehydration Status: Acute Assessment and Plan: Continue to hydrate with IV fluids. DS: Summary Hospital Course Reason for hospitalization: Jaylene Pimentel is a 23 year old female who has been drinking a half to a 5th of a pt of vodka on a daily basis for the last year. The patient stated that she has not had a drink of alcohol since Monday. The patient stated she deals with OCD and some held depression and anxiety. She has been on medication for OCD but not from long time. She currently does not take any medication. Patient has a family history of alcoholism. The patient started vomiting last night and is unable to keep down any fluids today. Patient is also shaky and having hand tremors since last night. Today she is having some hallucinations about seeing people in her room that do not exist. Blood pressure is 121/73 and heart rate is 134. On IV fluids and given IV lorazepam. She is also started on Librium as well. Started on the CIWA. Date of service 04/15/2019.Patient also stated that she had taken Natasha a couple days ago. She does not use Natasha every day. Her white count was noted to be 14.6 and platelets 149. Chest x-ray was negative. Hospital Course: patient is a 23-year-old female presented emergency department with a complaint abdominal pain nausea or vomiting patient stated see had been drinking how half bottle of 5th of vodka daily for 1 year, patient had not had drinking 2 days developed nausea or vomiting tremor was not able to hold any p.o. and presented emergency department for further
== END 2019-04-20 14:20 | disposition other institution (70) | DRG 897 ==
LOC: ANHED 10:17 → ANHIMU 10:56 → ANH3MEDSUR 04-20 12:56 → ANHIMU 04-24 14:35 → ANH3MEDSUR 04-24 14:35
PROVIDERS: Nurse Practitioner; Admitting Provider Hospitalist; Emergency Provider Emergency Medicine; Visit Provider Family Medicine
DX: F10.239 Alcohol dependence with withdrawal, unspecified (principal); Z28.21 Immunization not carried out because of patient refusal; F42.9 Obsessive-compulsive disorder, unspecified; F41.8 Other specified anxiety disorders; E86.0 Dehydration; I10 Essential (primary) hypertension; R11.2 Nausea with vomiting, unspecified; F10.280 Alcohol dependence with alcohol-induced anxiety disorder
CPT/HCPCS: 36415; 70450; 71046; 80048; 80053; 80307; 81001; 81025; 82550; 83690; 83735; 84443; 84484; 85025; 85027; 85055; 85610; 85730; 87804; 93005; 96361; 96365; 96366; 96372; 96374; 96375; 96376; 99285; A9270; C9113; G0378; J1650; J2060; J2405; J3411; J3475; J7120

== ENCOUNTER 2022-05-04 18:41 | Observation (INO) | payer OTHER, SELFPAY ==
[2022-05-04] VITALS (11 sets, daily range): BP systolic 105–131; BP diastolic 62–93; PULSE 72–104; RESP 14–21; TEMP 36.2–36.8; O2SAT 94–100; BMI 20.8
--- NOTE | ~2022-05-04 | XR_ITS ---
EXAMINATION: XR chest 1V portable Exam Date/Time: 05/04/2022 19:33 [facility] HISTORY: chest pain Comparison: 04/15/2019. RESULT: Lines, tubes, and devices: None. Lungs and pleura: Clear. Cardiomediastinal silhouette: Stable. Other: No acute osseous or upper abdominal finding. IMPRESSION: No acute cardiopulmonary process. Reviewed, dictated and finalized at location [facility]
--- NOTE | 2022-05-04 19:10 | ECG_ITS ---
Measurements Intervals [place] Rate: 72 P: 41 [place]: 142 QRS: 52 QRSD: 84 T: 59 QT: 388 QTc: 426 Interpretive Statements SINUS RHYTHM CANNOT RULE OUT sEPTAL MYOCARDIAL INFARCTION , OF INDETERMINATE AGE [40+ ms Q WAVE IN V1/V2] ABNORMAL ECG COMPARED TO ECG 04/15/2019 07:42:18 SINUS RHYTHM NOW PRESENT MYOCARDIAL INFARCT FINDING NOW PRESENT Electronically Signed On 05-05-2022 10:07:07 REHEATER by Mann Taylor M.D.
--- NOTE | 2022-05-04 19:21 | ED.ALCOHOL ---
HPI - Alcohol General Chief Complaint: Alcohol Stated Complaint: requesting detox from [facility] Time Seen by Provider: 05/04/22 19:01 Source: RN notes reviewed History of Present Illness HPI narrative: Patient presents emergency department from home for alcohol detoxification. Patient states she has history of alcohol abuse and drinks approximately 1 bottle of vodka a day. She denies any other drug use. She states that back in 2019 she did go through alcohol detox at [facility] she says she had problems with delirium during that time but no seizures she said following that she did remain sober for 8 months. States that she is gone to the point where she knows that she needs to stop drinking states that she has had no seizures for last drink was approximately an hour ago she denies any fevers or chills abdominal pain nausea or vomiting. The patient is here with her mother mother states patient has been noting some intermittent midsternal chest pain she denies any pain at this time Related Data Allergies Allergy/AdvReac Type Severity Reaction Status Date / Time No Known Allergies Allergy Unverified 03/31/16 03:28 Review of Systems Review of Systems: Gen.: Denies fevers or chills reports alcohol abuse ENT: Denies congestion Respiratory: Denies shortness of breath or cough CV: Reports intermittent lower midsternal chest pain GI: Denies abdominal pain nausea, emesis or diarrhea Musculoskeletal: Denies back pain or muscle pain Neuro: Denies numbness, tingling, weakness or focal weakness Skin: Denies rash Except as documented, all other systems reviewed and negative PMFSH Past Medical History Medical History No significant past medical history OCD (obsessive compulsive disorder) Surgical History Surgical History (Updated 04/15/19 @ 13:30 by Jeanne Robledo NP) H/O wisdom tooth extraction Family History Family History (Updated 04/15/19 @ 13:30 by Jeanne Robledo NP) Grandparent Hypertension Mother Hypertension Father Alcoholism /alcohol abuse Sibling Depression Social History Social History Social History: The patient stated she lives with her boyfriend. 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 She has been drinking a half to 1/5 pt vodka every day for approximately 1 year. Occasionally uses Natasha. She is willing to go to rehab. She is a full code. Smoking status: Never smoker Alcohol intake: current Drinks per week: 7 Alcohol use details: Half of 1/5 of vodka daily Substance use: current Substance use type: crack/cocaine, amphetamines and other Other substance usage details: substance used was laced with cocaine, pt didnt know Living arrangements: other Occupation/Education: occupation Gender identity (if verbalized by the patient): Female Spiritual care concerns: No Agree to blood products: Yes Exam Narrative: APPEARANCE: No acute distress, nontoxic, resting in bed EYES: EOMI HEENT: Normocephalic, atraumatic, OMM RESPIRATORY: No respiratory distress Clear to auscultation bilaterally with no rhonchi wheezing or rales. CARDIOVASCULAR: Regular rate and rhythm without murmurs rubs or gallops. ABDOMINAL: Soft, nontender, nondistended, no rebound or guarding MUSCULOSKELETAl: Moves all extremities. No clubbing, cyanosis or edema. NEURO: Awake and alert. Following commands, speech normal, no focal deficits SKIN:: Warm, dry. No rashes lesions or abrasions PSYCHIATRIC: Normal affect/mood, Course Course Emergency Course: Had long discussion with patient and family the patient does wish to quit alcohol she did have a difficult time with last attempt at alcohol withdrawal as she had severe hallucinations as well as nausea and vomiting : Discussed with Dr. Braswell for hospitalist service presentation work-up agrees with admission [facility]
[2022-05-04] MEDS: THIAMINE HCL 200 MG/2 ML VIAL 100 MG IV PUSH (19:40)
[2022-05-04] MEDS: SODIUM CHLORIDE 0.9% IV 1,000 ML 999 ML IV CONT (19:40)
[2022-05-04 19:42] LABS: Basophils Absolute Auto 0.1 K/mm3 (0.0-0.1); Basophils Percent Auto 0.7 % (0.2-1.2); Eosinophils Absolute Auto 0.1 K/mm3 (0-0.3); Eosinophils Percent Auto 1.1 % (0-4.4); Hematocrit 46.2 % (37.0-47.0); Hemoglobin 15.4 g/dL (12.0-15.0); Immature Granulocyte Absolute 0.07 K/mm3 (0.00-0.031); Immature Granulocyte Percent A 0.6 % (0-0.5); Lymphocytes Absolute Auto 4.71 K/mm3 (0.9-3.2); Lymphocytes Percent Auto 43.5 % (18.3-44.2); Mean Corpuscular HGB Conc 33.3 g/dl (32-36); Mean Corpuscular Volume 90.1 fl (80-100); Monocytes Absolute Auto 0.4 K/mm3 (0.1-0.6); Monocytes Percent Auto 3.7 % (2.6-8.5); Neutrophils Absolute Auto 5.5 K/mm3 (1.3-6.7); Neutrophils Percent Auto 50.4 % (45.5-73.1); Platelet Count Result 227 k/mm3 (150-375); Red Blood Count 5.13 M/mm3 (4.2-5.4); Red Cell Distribution Width 14.6 % (11.5-14.5); White Blood Count 10.8 K/mm3 (4.5-10.0)
[2022-05-04 19:43] LABS: Appearance Urine Clear (Clear); Bilirubin Urine Negative (Negative); Blood Urine 1+ (Negative); Color Urine Yellow (Yellow); Glucose Urine UA Negative (Negative); Ketones Urine Negative (Negative); Leukocyte Esterase Ur Negative LEU/UL (Negative); Nitrate Urine Negative (Negative); Protein Urine Negative (Negative); Urobilinogen Urine 0.2 mg/dL (<2.0); pH Urine 5.5 (5.0-9.0)
[2022-05-04 19:46] LABS: Bacteria Urine Trace /hpf; Mucus Urine Rare /lpf; RBC Urine 0-2 /hpf (0-2); Squamous Epithelial Cell Urine Rare /hpf (Few); WBC Urine 0-3 /hpf
[2022-05-04 19:49] LABS: Add Urine Microscopic? YES
[2022-05-04 19:58] LABS: Amphetamine Screen Urine Negative (Negative); Barbiturate Screen Urine Negative (Negative); Benzodiazepines Screen Urine Negative (Negative); Cannabinoid Screen Urine Positive (Negative); Cocaine Screen Urine Negative (Negative); Methadone Screen Urine Negative (Negative); Opiate Screen Urine Negative (Negative); Phencyclidine Screen Urine Negative (Negative)
[2022-05-04 20:08] LABS: Alanine Aminotransferase 33 U/L (6-35); Albumin Level 5.6 g/dL (3.5-5.1); Alkaline Phosphatase 57 U/L (38-126); Anion Gap 14 mmol/L (8-16); Aspartate Amino Transferase 51 U/L (14-36); Bilirubin,Total 0.5 mg/dL (0.2-1.3); Blood Urea Nitrogen 16 mg/dL (7-17); Calcium 8.9 mg/dL (8.4-10.2); Carbon Dioxide 26 mmol/L (22-30); Chloride 111 mmol/L (98-107); Estimated CRCL calculation 104 ml/min; Estimated Glomerular Filt Rate > 60; Glucose 85 mg/dL (65-110); Lipase 183 U/L (23-300); Magnesium 2.4 mg/dL (1.6-2.3); Potassium 4.2 mmol/L (3.4-5.0); Sodium 151 mmol/L (137-145)
[2022-05-04 20:09] LABS: Ethanol 400 mg/dL (<10)
[2022-05-04 20:22] LABS: Prothrombin Time 13.1 Seconds (11.1-14.7)
[2022-05-04 20:25] LABS: Troponin I < 0.012 ng/mL (0.000-0.034)
--- NOTE | 2022-05-04 20:56 | PM.IMHP ---
H&P: HPI History of Present Illness Date/Time: 05/04/22 20:57 Chief Complaint: alcohol withdrawal Narrative: This is a 26-year-old female with past medical history significant for alcohol dependence. Patient presents to the emergency room after she had a relapse she was able to stay sober for 8 months, she drank a pt of vodka and alcohol level was 400 upon presentation. Patient has been drinking a pt of vodka daily and expresses remorse and desires to go through detox. Patient denies any nausea, vomiting, tremors, hallucinations. Preliminary workup was significant for sodium 151. Patient is been admitted for further evaluation management and treatment. Review of Systems Review of Systems: Alcohol dependence desires to detox expresses remorse about habit Constitutional: Constitutional: Denies chills, Denies fever(s), Denies frequent falls, Denies malaise, Denies night sweats and Denies weakness Eyes: Eyes: Denies change in vision ENT: Denies dysphagia, Denies vertigo, Denies dizziness and Denies odynophagia Cardiovascular: Cardiovascular: Denies chest pain, Denies irregular heart rhythm and Denies lightheadedness Respiratory: Respiratory: Denies chest congestion, Denies cough, Denies excessive phlegm production and Denies dyspnea Gastrointestinal: Gastrointestinal: Denies abdominal pain, Denies dyspepsia, Denies heartburn, Denies diarrhea, Denies nausea and Denies vomiting Genitourinary: Genitourinary: Denies dysuria Musculoskeletal: Musculoskeletal: Denies back pain and Denies myalgias Integumentary/Breasts: Skin/Breast: Denies rash Neurologic: Denies focal weakness, Denies convulsions, Denies Sensory deficit (Neuro) and Denies tremor(s) Psychiatric: Psychiatric: Reports no additional psychiatric complaints and Reports as per HPI Endocrine: Endocrine: Denies cold intolerance, Denies flushing, Denies heat intolerance, Denies polyphagia, Denies polydipsia and Denies palpitations Hematologic/Lymphatic: Hematologic/Lymphatic: Reports no additional hematologic/lymphatic complaints and Reports as per HPI Allergic/Immunologic: Allergic/Immunologic: Reports no additional allergic/immunologic complaints and Reports as per HPI PMFSH Past Medical History Medical History No significant past medical history OCD (obsessive compulsive disorder) Surgical History Surgical History (Updated 04/15/19 @ 13:30 by Jeanne Robledo NP) H/O wisdom tooth extraction Family History Family History (Updated 04/15/19 @ 13:30 by Jeanne Robledo NP) Grandparent Hypertension Mother Hypertension Father Alcoholism /alcohol abuse Sibling Depression Social History Social History Social History: The patient stated she lives with her boyfriend. 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 She has been drinking a half to 1/5 pt vodka every day for approximately 1 year. Occasionally uses Natasha. She is willing to go to rehab. She is a full code. Smoking status: Never smoker Alcohol intake: current Drinks per week: 7 Alcohol use details: Half of 1/5 of vodka daily Substance use: current Substance use type: crack/cocaine, amphetamines and other Other substance usage details: substance used was laced with cocaine, pt didnt know Living arrangements: other Occupation/Education: occupation Gender identity (if verbalized by the patient): Female Spiritual care concerns: No Agree to blood products: Yes Meds Home Medications and Allergies Allergies Allergy/AdvReac Type Severity Reaction Status Date / Time No Known Allergies Allergy Unverified 03/31/16 03:28 Vital Signs Vital Signs - 24 hr 05/04/22 18:47 05/04/22 19:28 Temperature 98.2 F Pulse Rate 72 87 Respiratory Rate 16 19 Blood Pressure 127/80 131/93 H Pulse Oximetry 99 100 Exam Narrative:
[2022-05-04 22:37] LABS: Influenza A QL RT-PCR Negative (Negative); Influenza B QL RT-PCR Negative (Negative); SARS-CoV-2 RNA PCR Negative
[2022-05-04] MEDS: DEXTROSE 5% 1,000 ML 1,000 ML 100 ML IV CONT (22:45)
[2022-05-04] MEDS: chlordiazePOXIDE (*CRX) 25 MG CAPSULE 50 MG PO (22:57)
[2022-05-04] MEDS: NICOTINE (*PBKC) 14 MG PATCH 1 PATCH TRANSDERM (23:14)
[2022-05-04] MEDS: LORazepam INJ (*CRX) 2 MG/ML VIAL 1 MG IV PUSH (23:14)
[2022-05-05] MEDS: chlordiazePOXIDE (*CRX) 25 MG CAPSULE 50 MG PO ×3 (05:51→17:31)
[2022-05-05 06:00] VITALS: BP 125/79; PULSE 95; RESP 17; TEMP 36.4; O2SAT 99
[2022-05-05 06:08] LABS: Basophils Percent Auto 0.5 % (0.2-1.2); Eosinophils Absolute Auto 0.1 K/mm3 (0-0.3); Eosinophils Percent Auto 1.5 % (0-4.4); Hematocrit 37.7 % (37.0-47.0); Hemoglobin 12.9 g/dL (12.0-15.0); Immature Granulocyte Absolute 0.05 K/mm3 (0.00-0.031); Immature Granulocyte Percent A 0.6 % (0-0.5); Lymphocytes Absolute Auto 2.45 K/mm3 (0.9-3.2); Lymphocytes Percent Auto 28.6 % (18.3-44.2); Mean Corpuscular HGB Conc 34.2 g/dl (32-36); Mean Corpuscular Hemoglobin 30.9 pg (26-34); Mean Corpuscular Volume 90.4 fl (80-100); Mean Platelet Volume 8.1 fl (7.4-10.4); Monocytes Absolute Auto 0.4 K/mm3 (0.1-0.6); Monocytes Percent Auto 5.1 % (2.6-8.5); Neutrophils Absolute Auto 5.5 K/mm3 (1.3-6.7); Neutrophils Percent Auto 63.7 % (45.5-73.1); Platelet Count Result 163 k/mm3 (150-375); Red Blood Count 4.17 M/mm3 (4.2-5.4); Red Cell Distribution Width 14.5 % (11.5-14.5); White Blood Count 8.6 K/mm3 (4.5-10.0)
[2022-05-05 06:26] LABS: Alanine Aminotransferase 25 U/L (6-35); Albumin Level 4.5 g/dL (3.5-5.1); Alkaline Phosphatase 47 U/L (38-126); Anion Gap 6 mmol/L (8-16); Aspartate Amino Transferase 36 U/L (14-36); Bilirubin,Total 0.4 mg/dL (0.2-1.3); Blood Urea Nitrogen 16 mg/dL (7-17); Calcium 8.1 mg/dL (8.4-10.2); Carbon Dioxide 25 mmol/L (22-30); Chloride 106 mmol/L (98-107); Estimated CRCL calculation 111 ml/min; Estimated Glomerular Filt Rate > 60; Glucose 77 mg/dL (65-110); Magnesium 1.9 mg/dL (1.6-2.3); Potassium 3.5 mmol/L (3.4-5.0); Sodium 137 mmol/L (137-145)
[2022-05-05] MEDS: LORazepam INJ (*CRX) 2 MG/ML VIAL 1 MG IV PUSH ×2 (07:47→20:33)
[2022-05-05] MEDS: NICOTINE (*PBKC) 14 MG PATCH 1 PATCH TRANSDERM (08:53)
[2022-05-05] MEDS: DEXTROSE 5% 1,000 ML 1,000 ML 100 ML IV CONT ×2 (10:11→20:29)
--- NOTE | 2022-05-05 10:30 | PM.IMPN ---
Progress Note: A&P Assessment and Plan (1) Alcoholic intoxication: Code(s): F10.929 - Alcohol use, unspecified with intoxication, unspecified Status: Acute Assessment and Plan: CIWA protocol as needed Librium 50 mg p.o. q.6 hours Ativan as needed titrate Librium as indicated Stable at this time (2) Alcohol abuse: Code(s): F10.10 - Alcohol abuse, uncomplicated Status: Acute Assessment and Plan: patient desires to detox Was recently discharged with the same plan Greater than 15 minutes given to correctional substance abuse counselor and cessation education Will see if the liaison could visit patient (3) Acute hypernatremia: Code(s): E87.0 - Hyperosmolality and hypernatremia Status: Acute Assessment and Plan: Currently Na at 137 patient started on D5W Will discontinue fluids at this time Continue to trend (4) OCD (obsessive compulsive disorder): Code(s): F42.9 - Obsessive-compulsive disorder, unspecified Status: Chronic Assessment and Plan: on Librium and Ativan p.r.n. Time Spent With Patient Time: 57 minutes Time with patient: Greater than 35 minutes Subjective Date/time seen: 05/05/22 1030 Interval history: 05/05/22 1030 Patient was sitting up in bed. Patient stated that she was feeling okay. She does have some mild tremors. She is also stating that she is having some weird dreams woke up sweaty. She is also stating that she can hear faint people talking however no beds there. She is having some tingling in her legs and feet. She does feel nauseous however she is tolerating food. She has a mild headache with no photophobia. Spoken educated the patient about drinking cessation for about 15 minutes. Also talked to care coordination who is coordinating a liaison. Patient seems to have sort of a plan and wants to go to AA meetings however she does not have a sponsor. She denies any shortness of breath weakness nausea vomiting diarrhea. 05/04/22? 20:57 ?This is a 26-year-old female with past medical history significant for alcohol dependence.? Patient presents to the emergency room after she had a relapse she was able to stay sober for 8 months, she drank a pt of vodka and alcohol level was 400 upon presentation.? Patient has been drinking a pt of vodka daily and expresses remorse and desires to go through detox.? Patient denies any nausea, vomiting, tremors, hallucinations.? Preliminary workup was significant for sodium 151.? Patient is been admitted for further evaluation management and treatment. Review of Systems Review of Systems: All systems reviewed & are unremarkable except as noted in HPI and below Exam Narrative: General: well-nourished, well-appearing 26-year-old female, sitting up in bed, comfortable, NARD Neuro: awake, alert and oriented x4, speech clear, no focal neuro deficits noted HEENMT: normocephalic, atraumatic, EOMI, sclerae anicteric, moist oral mucosa Respiratory: Clear to auscultation bilaterally without crackles, rhonchi or wheezes, nonlabored breathing Cardio: regular rate, regular rhythm with S1-S2 Abdomen: nondistended, normoactive bowel sounds, soft, nontender to palpation Extremities: no edema, erythema, or tenderness to palpation, DP pulses 2+ bilaterally Skin: no rashes or lesions, warm and dry Psych: appropriate mood and affect, judgment and insight intact Objective Data Vital Signs Vital Signs: Vital Signs - 24 hr 05/04/22 18:47 05/04/22 19:28 05/04/22 19:37 Temperature 98.2 F Pulse Rate 72 87 79 Respiratory Rate 16 19 18 Blood Pressure 127/80 131/93 H Pulse Oximetry 99 100 100 Oxygen Delivery 05/04/22 20:00 05/04/22 20:15 05/04/22 20:30 Temperature Pulse Rate 82 80 95 Respiratory Rate 17 19 14 Blood Pressure Pulse Oximetry 100 100 100 Oxygen Delivery 05/04/22 20:45 05/04/22 21:07 05/04/22 21:16 Temperature
[2022-05-05 14:00] VITALS: BP 127/87; PULSE 88; RESP 16; TEMP 36.7; O2SAT 100
[2022-05-05 22:00] VITALS: BP 119/86; PULSE 87; RESP 16; TEMP 35.9; O2SAT 100
[2022-05-06] MEDS: chlordiazePOXIDE (*CRX) 25 MG CAPSULE 50 MG PO ×2 (00:42→06:11)
[2022-05-06 06:00] VITALS: BP 117/74; PULSE 72; RESP 16; TEMP 36.2; O2SAT 100
[2022-05-06] MEDS: DEXTROSE 5% 1,000 ML 1,000 ML 100 ML IV CONT (06:10)
[2022-05-06 06:11] LABS: Basophils Percent Auto 0.4 % (0.2-1.2); Eosinophils Absolute Auto 0.1 K/mm3 (0-0.3); Eosinophils Percent Auto 2.1 % (0-4.4); Hematocrit 39.4 % (37.0-47.0); Hemoglobin 13.3 g/dL (12.0-15.0); Immature Granulocyte Absolute 0.04 K/mm3 (0.00-0.031); Immature Granulocyte Percent A 0.6 % (0-0.5); Lymphocytes Absolute Auto 2.33 K/mm3 (0.9-3.2); Lymphocytes Percent Auto 34.8 % (18.3-44.2); Mean Corpuscular HGB Conc 33.8 g/dl (32-36); Mean Corpuscular Hemoglobin 30.1 pg (26-34); Mean Corpuscular Volume 89.1 fl (80-100); Mean Platelet Volume 8.3 fl (7.4-10.4); Monocytes Absolute Auto 0.5 K/mm3 (0.1-0.6); Monocytes Percent Auto 7.8 % (2.6-8.5); Neutrophils Absolute Auto 3.6 K/mm3 (1.3-6.7); Neutrophils Percent Auto 54.3 % (45.5-73.1); Platelet Count Result 146 k/mm3 (150-375); Red Blood Count 4.42 M/mm3 (4.2-5.4); Red Cell Distribution Width 13.7 % (11.5-14.5); White Blood Count 6.7 K/mm3 (4.5-10.0)
[2022-05-06 06:27] LABS: Alanine Aminotransferase 28 U/L (6-35); Albumin Level 4.5 g/dL (3.5-5.1); Alkaline Phosphatase 42 U/L (38-126); Anion Gap 6 mmol/L (8-16); Aspartate Amino Transferase 35 U/L (14-36); Bilirubin,Total 0.7 mg/dL (0.2-1.3); Blood Urea Nitrogen 10 mg/dL (7-17); Calcium 8.3 mg/dL (8.4-10.2); Carbon Dioxide 26 mmol/L (22-30); Chloride 105 mmol/L (98-107); Estimated CRCL calculation 111 ml/min; Estimated Glomerular Filt Rate > 60; Glucose 141 mg/dL (65-110); Magnesium 2.2 mg/dL (1.6-2.3); Potassium 3.6 mmol/L (3.4-5.0); Sodium 137 mmol/L (137-145)
--- NOTE | 2022-05-06 08:15 | PM.DS ---
DS: Admitting Diagnosis Discharge Date 05/06/22814 Admitting Diagnosis ETOH intoxication/withdrawal, acute hypernatremia DS: Discharge Diagnosis Discharge Diagnosis (1) Alcoholic intoxication: Code(s): F10.929 - Alcohol use, unspecified with intoxication, unspecified Status: Acute Assessment and Plan: CIWA protocol as needed Librium 50 mg p.o. q.6 hours Ativan as needed titrate Librium as indicated Stable at this time (2) Alcohol abuse: Code(s): F10.10 - Alcohol abuse, uncomplicated Status: Acute Assessment and Plan: patient desires to detox Was recently discharged with the same plan Greater than 15 minutes given to student success counselor and cessation education Will see if the liaison could visit patient (3) Acute hypernatremia: Code(s): E87.0 - Hyperosmolality and hypernatremia Status: Acute Assessment and Plan: Currently Na at 137 patient started on D5W Will discontinue fluids at this time Continue to trend (4) OCD (obsessive compulsive disorder): Code(s): F42.9 - Obsessive-compulsive disorder, unspecified Status: Chronic Assessment and Plan: on Librium and Ativan p.r.n. DS: Summary Hospital Course Hospital Course: Patient is a 26-year-old female with past medical history of alcohol abuse and OCT who presented to the ED with complaints of alcohol intoxication. Patient has tried multiple times for detox and has been to multiple rehabs. At this point patient is unable to control herself and has been drinking for the past few weeks reportedly however according to notes the patient has been drinking more more each day. At the time of presentation patient was noted to have sodium of 151 and was started on D5W. Currently labs and vital signs are stable. Patient has been having CIWA scales and Librium was started. Currently patient is stable for discharge for labs and vital signs. Patient is being discharged to a rehab [place]. Patient denies any complaints of chest pain, shortness a breath, nausea, vomiting, diarrhea or constipation. Patient still has a few withdrawal symptoms however will be addressed at the rehab center. Status at Discharge Functional status at discharge: independent ambulation Overall status at discharge: patient is progressing back to baseline Time Spent with Patient Time attestation: Total time spent providing and/or coordinating discharge services: 52 minutes Time spent: Greater than 30 minutes Specific discharge activities: Diagnostic testing, chart review, developing a treatment plan, education, care coordination documentation, physical exam, result review Exam Narrative: General: well-nourished, well-appearing 26-year-old female, sitting up in bed, comfortable, NARD Neuro: awake, alert and oriented x4, speech clear, no focal neuro deficits noted HEENMT: normocephalic, atraumatic, EOMI, sclerae anicteric, moist oral mucosa Respiratory: Clear to auscultation bilaterally without crackles, rhonchi or wheezes, nonlabored breathing Cardio: regular rate, regular rhythm with S1-S2 Abdomen: nondistended, normoactive bowel sounds, soft, nontender to palpation Extremities: no edema, erythema, or tenderness to palpation, DP pulses 2+ bilaterally Skin: no rashes or lesions, warm and dry Psych: appropriate mood and affect, judgment and insight intact DS: Data Data Completed and Pending Labs on day of discharge: Labs from last 24 hours 05/06/22 05/06/22 05:48 05:48 WBC 6.7 RBC 4.42 Hgb 13.3 Hct 39.4 MCV 89.1 MCH 30.1 MCHC 33.8 RDW 13.7 Plt Count 146 L MPV 8.3 Immature Gran % (Auto) 0.6 H Neut % (Auto) 54.3 Lymph % (Auto) 34.8 [place] % (Auto) 7.8 Eos % (Auto) 2.1 Baso % (Auto) 0.4 Lymph # (Auto) 2.33 [place] # (Auto) 0.5 Eos # (Auto) 0.1 Baso # (Auto) 0.0 Abs Immat Gran (auto) 0.04 H Absolute Neuts (aut
[2022-05-06] MEDS: NICOTINE (*PBKC) 14 MG PATCH 1 PATCH TRANSDERM (08:19)
== END 2022-05-06 09:05 | disposition home or self-care (01) ==
LOC: ANHED 19:33 → ANH3MEDSUR 05-05 00:25
PROVIDERS: Nurse Practitioner; Admitting Provider Internal Medicine; Emergency Provider Emergency Medicine; Visit Provider Chiropractor
DX: F10.129 Alcohol abuse with intoxication, unspecified (principal); Y90.8 Blood alcohol level of 240 mg/100 ml or more; E87.0 Hyperosmolality and hypernatremia; F42.9 Obsessive-compulsive disorder, unspecified; Z20.822 Contact with and (suspected) exposure to COVID-19; R94.31 Abnormal electrocardiogram [ECG] [EKG]; F14.90 Cocaine use, unspecified, uncomplicated; F15.90 Other stimulant use, unspecified, uncomplicated; F18.90 Inhalant use, unspecified, uncomplicated; Z81.1 Family history of alcohol abuse and dependence
CPT/HCPCS: 36415; 71045; 80053; 80307; 81001; 81025; 83690; 83735; 84484; 85025; 85610; 87636; 93005; 96361; 96365; 96366; 96374; 96375; 99285; A9270; G0378; J2060; J3411; J7030; J7070